=== PATIENT | female | born 1945 | race Caucasian/White ===

== ENCOUNTER 2017-02-09 10:42 | Day surgery (SDC) | payer MEDICARE, OTHER ==
[2017-02-09] VITALS (10 sets, daily range): BP systolic 96–168; BP diastolic 56–91; PULSE 79–85; RESP 16–23; Ht 152.4 cm; Wt 82.9 kg
[~2017-02-09] VITALS: Ht 152.4 cm; Wt 82.9 kg
[2017-02-09] MEDS ORDERED: DILT120C62 PO (11:32)
[2017-02-09] MEDS ORDERED: COLC1TAB PO (11:33)
[2017-02-09] MEDS ORDERED: VENL75TA PO (11:33)
[2017-02-09 11:34] LABS: ADD SCAN DIFF NO
[2017-02-09] MEDS ORDERED: SIMV40TA2 PO (11:34)
[2017-02-09] MEDS ORDERED: METF500T4 PO (11:34)
[2017-02-09] MEDS ORDERED: DIGO125T PO (11:35)
[2017-02-09] MEDS ORDERED: LISI10TA2 PO (11:36)
[2017-02-09] MEDS ORDERED: FURO40TA4 PO (11:36)
[2017-02-09] MEDS ORDERED: APIX5TAB PO (11:36)
[2017-02-09 11:39] LABS: BASOPHIL # 0.1 10^3/ul (0.0-0.1); BASOPHILS % 0.8 % (0.0-2.0); EOSINOPHILS # 0.1 10^3/ul (0.0-0.5); HEMATOCRIT 42.1 % (37.0-47.0); HEMOGLOBIN 13.9 g/dl (12.0-16.0); LYMPHOCYTES # 1.1 10^3/ul (0.8-2.9); LYMPHOCYTES % 18.5 % (15.0-51.0); MEAN CORPUSCULAR HEMOGLOBIN 30.5 pg (29.0-33.0); MEAN CORPUSCULAR VOLUME 92.3 fl (82.0-101.0); MEAN PLATELET VOLUME 10.2 fl (7.4-10.4); MONOCYTE # 0.9 10^3/ul (0.3-0.9); MONOCYTES % 14.9 % (0.0-11.0); NEUTROPHIL # 3.8 10^3/ul (1.6-7.5); NEUTROPHILS % 63.3 % (39.0-77.0); PLATELET COUNT 189 10^3/UL (140-415); RED BLOOD COUNT 4.56 10^6/ul (4.20-5.40); RED CELL DISTRIBUTION WIDTH 13.4 % (11.5-14.5)
[2017-02-09 11:52] LABS: CALCIUM 9.6 mg/dl (8.4-10.2); CREATININE 0.79 mg/dl (0.44-1.00); POTASSIUM 4.4 mmol/L (3.5-5.1)
[2017-02-09] MEDS ORDERED: PROPOFOL 20 ML ONE ×2 (11:53→12:29)
[2017-02-09] MEDS ORDERED: MIDAZOLAM 1 MG/ML 2 ML INJ ONE (11:53)
[2017-02-09] MEDS ORDERED: FENTAnyl 50 MCG/ML VIAL ONE (11:53)
[2017-02-09 11:59] LABS: INR 1.2; PROTIME 15.3 Sec (12.2-14.2); PT RATIO 1.2
[2017-02-09 12:00] LABS: PARTIAL THROMBOPLASTIN TIME 26.2 Sec (25.0-35.0)
--- NOTE | 2017-02-09 12:39 | PDOCDIS ---
Discharge Instructions CONDITION Patient Condition: Good HOME CARE INSTRUCTIONS: Diet Instructions: Regular ACTIVITY: Activity Restrictions: Do not Drive (x 1 day) Christian Maharaj DO Feb 09, 2017 12:39
--- NOTE | 2017-02-09 13:42 | CARRPT ---
DATE OF PROCEDURE: 02/09/2017 PROCEDURE: 1. Transesophageal echocardiogram. 2. Cardioversion. PATIENT HISTORY: This is a 71-year-old female who presents with symptomatic atrial fibrillation for cardioversion. DESCRIPTION OF PROCEDURE: The patient was brought to the labor standards director after informed consent. The carson ent confirmed that she did take her Eliquis this morning. She tells me she has been having issues w ith compliance in the past with Eliquis, but she did confirm she will be compliant from this point f orward of twice a day dosing and she is adamant that she took it this morning. The patient was anes thetized with anesthesia present. The patient was intubated with the JOSÉ probe. Images were obtain ed. The JOSÉ probe was removed. Synchronized cardioversion was performed with 150 joules and was howe ccessful to sinus rhythm. There were no immediate complications. FINDINGS: 1. Left ventricular systolic function appears grossly normal. 2. Left atrium appears mildly dilated with no smoke seen. 3. Left atrial appendage with smoke seen, but no thrombus. 4. Right ventricular function appears normal. 5. Aortic valve was trileaflet with trace regurgitation. 6. Pulmonic valve is grossly normal with trace regurgitation. 7. Tricuspid valve is grossly normal with mild to moderate regurgitation. 8. Mitral valve is grossly normal with mild regurgitation. 9. Interatrial septum was interrogated and did demonstrate shunting consistent with a PFO. 10. Visualized portion of the descending aorta with minimal atheroma. DIAGNOSES: 1. Atrial fibrillation, status post cardioversion. 2. Tricuspid valve regurgitation. 3. Mitral valve regurgitation. 4. Patent foramen ovale. COMPLICATIONS: None. BLOOD LOSS: None. RECOMMENDATIONS: Continue anticoagulation for a minimum of 1 month. Dictated By: JOJO CHAO/DELORIS Conf#: [id number] DID#: [id number]
--- NOTE | 2017-02-10 10:35 | RADRPT ---
Vent Rate: 111 bpm RR Interval: 0 msec [place] Interval: 0 msec QRS Duration: 80 msec QT Interval: 316 msec QTC Interval: 429 msec P-R-T [place]: 0 - 43 - 0 degrees Atrial fibrillation with rapid ventricular response Nonspecific ST and T wave abnormality , probably digitalis effect Abnormal ECG Electronically Signed By: Asher Max [id number]
--- NOTE | 2017-02-10 10:36 | RADRPT ---
Vent Rate: 83 bpm RR Interval: 0 msec [place] Interval: 174 msec QRS Duration: 78 msec QT Interval: 356 msec QTC Interval: 418 msec P-R-T [place]: 65 - 62 - -24 degrees Normal sinus rhythm ST amp; T wave abnormality, consider inferior ischemia Abnormal ECG Electronically Signed By: Asher Max [id number]
== END 2017-02-09 14:37 | disposition home or self-care (01) ==
LOC: SDS 10:42
PROVIDERS: ATTEND Internal Medicine Cardiovascular Disease
DX: I48.91 Unspecified atrial fibrillation (principal); I07.1 Rheumatic tricuspid insufficiency; I34.0 Nonrheumatic mitral (valve) insufficiency; Q21.1 Atrial septal defect; E78.5 Hyperlipidemia, unspecified; E11.9 Type 2 diabetes mellitus without complications; I10 Essential (primary) hypertension
CPT/HCPCS: 80048; 82962; 85025; 85610; 85730; 92960; 93005; 93312; 93325; J2250; J3010